=== PATIENT | male | born 1950 | race Caucasian/White ===

== ENCOUNTER 2020-07-22 08:00 | Outpatient (CLI) | payer MEDICARE ==
[2020-07-22] MEDS ORDERED: LEVE750T37 PO (15:24)
[2020-07-22] MEDS ORDERED: STEROID PO (15:24)
[2020-07-22] MEDS ORDERED: ALPR0.254 PO (15:24)
[2020-07-22] MEDS ORDERED: HYDR-3248 PO (15:24)
[2020-07-22 15:35] LABS: MEAN CORPUSCULAR HEMOGLOBIN 30.5 pg (27.5-34.5); MEAN CORPUSCULAR HGB CONC 33.8 g/dL (33.2-36.2); MEAN PLATELET VOLUME 8.2 fL (7.4-10.4); PLATELET COUNT 254 x10^3/uL (130-400); RED BLOOD COUNT 5.17 x10^6/uL (4.38-5.82); RED CELL DISTRIBUTION WIDTH 13.5 % (9.4-14.8)
[2020-07-22 15:47] LABS: ALBUMIN 3.9 g/dL (3.4-5.0); ANION GAP 4 mmol/L (5-15); CALCIUM 9.4 mg/dL (8.5-10.1); CHLORIDE 109 mmol/L (98-107)
[2020-07-22 15:50] LABS: PROTHROMBIN TIME 10.7 Seconds (9.6-11.5)
[2020-07-22 15:51] LABS: ALANINE AMINOTRANSFERASE 19 U/L (12-78); ALKALINE PHOSPHATASE 74 U/L (45-117); BILIRUBIN,TOTAL 0.3 mg/dL (0.2-1.0); TOTAL PROTEIN 7.7 g/dL (6.4-8.2)
[2020-07-22 16:01] LABS: MD YES
[2020-07-22 17:44] LABS: LYMPH#(MANUAL) 1.08 x10^3/uL (1-3.4); LYMPHS% (MANUAL) 8 % (22-44); MONOS#(MANUAL) 0.27 x10^3/uL (0.3-2.7); MONOS% (MANUAL) 2 % (2-9); SEG#(MANUAL) 12.15 x10^3/uL (1.8-6.8); SEGS% (MANUAL) 90 % (42-75)
[2020-07-22 17:45] LABS: <PLATELET ESTIMATE> ADEQUATE; <PLT MORPHOLOGY> NORMAL PLT MORPH; <RBC MORPHOLOGY> NORMAL
== END 2020-07-22 23:59 | disposition home or self-care (01) ==
LOC: STAR 08:00
PROVIDERS: ATTEND Neurological Surgery
DX: Z01.812 Encounter for preprocedural laboratory examination (principal); Z20.822 Contact with and (suspected) exposure to COVID-19; R91.1 Solitary pulmonary nodule; I45.10 Unspecified right bundle-branch block
CPT/HCPCS: 36415; 71046; 80053; 85025; 85610; 85730; 93005; U0003

== ENCOUNTER 2020-08-12 11:18 | Emergency (ER) | payer MEDICARE ==
[~2020-08-12] VITALS: Ht 182.9 cm; Wt 81.5 kg
[~2020-08-12 11:18] MED LIST: ACET325T26 PO; ALPR0.254 PO; DEXA4VIA39 IV; ENOX40SY4 SQ; HYDR-2214 PO; HYDR-3248 PO; LEVE100020 PO; LEVE750T37 PO; STEROID PO
--- NOTE | 2020-08-12 12:14 | NUR ---
Lara from acute rehab please call [phone]
--- NOTE | 2020-08-12 12:29 | NUR ---
PT RESTING RECLINED IN BED, AT BEDSIDE FLIPPING THROUGH CHANNELS TOGETHER. PT EAGER TO COMPLETE EKG AND IMAGING. EKG AT BEDSIDE AT THIS TIME. NAD NOTED.
[2020-08-12 13:03] VITALS: BP 104/55
--- NOTE | 2020-08-12 13:37 | NUR ---
PT MOVED UP IN BED FOR COMFORT. NAD NOTED AT THIS TIME. AWAITING RESULTS. AT BEDSIDE.
--- NOTE | 2020-08-12 14:24 | NUR ---
CALL TO [facility] TO INITIATE TRANSFER BACK FROM [facility] ED.
== END 2020-08-12 15:08 | disposition short-term general hospital (02) ==
LOC: ED 14:04
DX: S09.90XA Unspecified injury of head, initial encounter (principal); R94.31 Abnormal electrocardiogram [ECG] [EKG]; Z79.01 Long term (current) use of anticoagulants; W01.0XXA Fall on same level from slipping, tripping and stumbling without subsequent striking against object, initial encounter; Y93.89 Activity, other specified; Y92.009 Unspecified place in unspecified non-institutional (private) residence as the place of occurrence of the external cause; Y99.8 Other external cause status
CPT/HCPCS: 70450; 93005; 99284; 99285